=== PATIENT | female | born 2000 | race American Indian/Alaskan Native ===

== ENCOUNTER 2019-01-28 12:32 | Emergency (ER) | payer SELFPAY ==
[2019-01-28 15:17] VITALS: BP 117/66
--- NOTE | 2019-01-28 15:22 | Event Note ---
ED Screening Note Date of service: 01/28/19 Time: 15:21 ED Screening Note: c/o vaginal discharge and dysuria x 2 weeks states got tested in [place] and came back positive for gonorrhea and chlamydia-has not had treatment This initial assessment/diagnostic orders/clinical plan/treatment(s) is/are s ubject to change based on patients health status, clinical progression and re- assessment by fellow clinical providers in the ED. Further treatment and workup at subsequent clinical providers discretion. Patient/guardian urged not to elope from the ED as their condition may be serious if not clinically assessed and managed. Initial orders include: ACC
[2019-01-28 16:35] LABS: HCG Qualitative,Urine Negative (Negative)
[2019-01-28 16:36] LABS: Bilirubin,Urine NEG (Negative); Blood,Urine NEG (Negative); Color,Urine Yellow (Yellow); Mucus,Urine 3+ /HPF; Protein,Urine <15 mg/dL mg/dL (Negative); Urobilinogen,Urine < 2.0 mg/dL (<2.0)
== END 2019-01-28 20:51 | disposition left against medical advice (07) ==
LOC: ED 12:32
DX: A64 Unspecified sexually transmitted disease (principal); Z53.21 Procedure and treatment not carried out due to patient leaving prior to being seen by health care provider
CPT/HCPCS: 81001; 81025

== ENCOUNTER 2019-03-25 09:38 | Emergency (ER) | payer SELFPAY ==
[2019-03-25 09:55] VITALS: BP 115/61
[2019-03-25 10:43] LABS: HCG Qualitative,Urine Negative (Negative)
[2019-03-25 11:07] LABS: Bilirubin,Urine Negative (Negative); Color,Urine Yellow (Yellow)
[2019-03-25 11:08] LABS: Urobilinogen,Urine < 0.2 mg/dL (<2.0)
[2019-03-25 11:17] LABS: Bacteria,Urine 2+ /HPF (Negative); Mucus,Urine 3+ /HPF
--- NOTE | 2019-03-25 11:37 | Emergency Department Report ---
ED Female HPI - General Chief complaint: Abdominal Pain Stated complaint: PELVIC PAIN,PAIN WHEN URINATING,STOMACH PAIN Time Seen by Provider: 03/25/19 11:32 Source: patient Mode of arrival: Ambulatory Limitations: No Limitations - History of Present Illness Initial comments: CC: "It hurts when I pee." HPI: 18 yo female presents with dysuria and pelvic pain. Burning at the urethra. white vaginal discharge MD Complaint: dysuria -: Gradual, days(s) (3) Severity: mild Consistency: intermittent Improves with: urination - Related Data Previous Rx's Medication Instructions Recorded Last Taken Type Fluconazole [Diflucan TAB] 150 mg PO ONCE #1 tablet 03/25/19 Unknown Rx Sulfamethoxazole/Trimethoprim 1 each PO BID 5 Days #10 tablet 03/25/19 Unknown Rx [Bactrim DS TAB] metroNIDAZOLE [Flagyl] 500 mg PO Q12HR 7 Days #14 tab 03/25/19 Unknown Rx Allergies Allergy/AdvReac Type Severity Reaction Status Date / Time No Known Allergies Allergy Unverified 01/28/19 12:45 ED Review of Systems ROS: Stated complaint: PELVIC PAIN,PAIN WHEN URINATING,STOMACH PAIN Other details as noted in HPI Constitutional: denies: fever, malaise Genitourinary: urgency, dysuria ED Past Medical Hx - Past Medical History Previous Medical History?: No - Surgical History Past Surgical History?: No - Social History Smoking Status: Never Smoker Substance Use Type: None - Medications Home Medications: Home Medications Medication Instructions Recorded Confirmed Last Taken Type Fluconazole [Diflucan TAB] 150 mg PO ONCE #1 tablet 03/25/19 Unknown Rx Sulfamethoxazole/Trimethoprim 1 each PO BID 5 Days #10 tablet 03/25/19 Unknown Rx [Bactrim DS TAB] metroNIDAZOLE [Flagyl] 500 mg PO Q12HR 7 Days #14 tab 03/25/19 Unknown Rx ED Physical Exam - General Limitations: No Limitations General appearance: alert, in no apparent distress - Head Head exam: Present: atraumatic, normocephalic - Eye Eye exam: Present: normal appearance - ENT ENT exam: Present: mucous membranes moist - Neck Neck exam: Present: normal inspection - Respiratory Respiratory exam: Absent: respiratory distress - Cardiovascular Cardiovascular Exam: Present: gallop - GI/Abdominal GI/Abdominal exam: Present: soft. Absent: distended, tenderness, guarding - Extremities Exam Extremities exam: Present: normal inspection - Neurological Exam Neurological exam: Present: alert, oriented X3 - Psychiatric Psychiatric exam: Present: normal affect, normal mood - Skin Skin exam: Present: warm, dry, intact, normal color. Absent: rash ED Course Vital Signs 03/25/19 09:53 Temperature 98.0 F Pulse Rate 91 H Respiratory 20 Rate Blood Pressure 115/61 O2 Sat by Pulse 97 Oximetry ED Medical Decision Making - Medical Decision Making UTI, vaginitis: bactrim, metronidazole, fluconazole Critical care attestation.: If time is entered above; I have spent that time in minutes in the direct care of this critically ill patient, excluding procedure time. ED Disposition Clinical Impression: UTI (urinary tract infection), Vaginitis Disposition: TO HOME OR SELFCARE Is pt being admited?: No Does the pt Need Aspirin: No Condition: Stable Instructions: Vaginitis (ED), Urinary Tract Infection in Women (ED) Prescriptions: Sulfamethoxazole/Trimethoprim [Bactrim DS TAB] 1 each PO BID 5 Days #10 tablet Fluconazole [Diflucan TAB] 150 mg PO ONCE #1 tablet metroNIDAZOLE [Flagyl] 500 mg PO Q12HR 7 Days #14 tab Referrals: EIDLIA RUDOLPH MD [Staff Physician] - 3-5 Days SCOOBY BAILEY MD [Staff Physician] - 3-5 Days
== END 2019-03-25 11:33 | disposition home or self-care (01) ==
LOC: ED 09:38
DX: N39.0 Urinary tract infection, site not specified (principal); N76.0 Acute vaginitis
CPT/HCPCS: 81001; 81025; 87086; 99283